=== PATIENT | female | born 1965 | race Caucasian/White ===

== ENCOUNTER 2024-06-16 10:39 | Emergency (ER) | payer OTHER, BC ==
[2024-06-16] MEDS: Acetaminophen 500 MG Tab PO ONE (12:41)
[2024-06-16] MEDS: Methocarbamol 750 MG Tab PO STA (12:41)
== END 2024-06-16 13:01 | disposition home or self-care (01) ==
LOC: MW.ED 10:39
DX: S13.4XXA Sprain of ligaments of cervical spine, initial encounter (principal); Z88.5 Allergy status to narcotic agent; Z79.899 Other long term (current) drug therapy; V49.59XA Passenger injured in collision with other motor vehicles in traffic accident, initial encounter; Y93.89 Activity, other specified
CPT/HCPCS: 70450; 72125; 99284; A9270; 99282